=== PATIENT | male | born 1950 | race Caucasian/White ===

== ENCOUNTER 2018-08-12 23:38 | Emergency (ER) | payer OTHER, MEDICAID ==
[2018-08-13] MEDS: ACETAMINOPHEN 500 MG TAB PO (01:16)
[2018-08-13] MEDS: DIPHTH/TET/ACEL PERTUSS (ADULT) 0.5 ML VIAL IM* (01:16)
== END 2018-08-13 02:45 | disposition home or self-care (01) ==
LOC: FTE 23:38
DX: S01.111A Laceration without foreign body of right eyelid and periocular area, initial encounter (principal); M25.521 Pain in right elbow; W18.2XXA Fall in (into) shower or empty bathtub, initial encounter; Y92.031 Bathroom in apartment as the place of occurrence of the external cause; Z23 Encounter for immunization
CPT/HCPCS: 12011; 70450; 70486; 90471; 90715; 99284-25

== ENCOUNTER 2018-08-14 22:21 | Emergency (ER) | payer OTHER | END 2018-08-15 00:43 | disposition home or self-care (01) | LOC: FTE 22:21 | DX: Z48.01 Encounter for change or removal of surgical wound dressing (principal) | CPT/HCPCS: 99281 ==

== ENCOUNTER 2018-08-19 23:22 | Emergency (ER) | payer OTHER | END 2018-08-20 02:44 | disposition home or self-care (01) | LOC: FTE 23:22 | DX: Z48.02 Encounter for removal of sutures (principal) | CPT/HCPCS: 99281 ==